=== PATIENT | male | born 2000 | race African-American/Black ===

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

== ENCOUNTER 2025-01-16 11:14 | Emergency (ER) | payer OTHER, SELFPAY ==
[2025-01-16 11:22] VITALS: BP 121/72; PULSE 62; RESP 20; TEMP 36.9; O2SAT 100
--- NOTE | 2025-01-16 12:01 | ED.GENADULT ---
HPI - General Adult General Chief complaint: Unspecified Stated complaint: Body Pain Time Seen by Provider: 01/16/25 12:01 Source: patient Mode of arrival: ambulatory Limitations: no limitations History of Present Illness HPI narrative: 24-year-old male presents with complaint of body aches, fatigue, chills and headaches for the past 3-4 days. Symptoms improving. Attempted to go back into work today And was told that he needs a work note. All systems reviewed and negative except as noted above. Related Data Home Medications ?Medication ?Instructions ?Recorded ?Confirmed ?Last Taken ?Type No Home Medications 01/16/25 01/16/25 Unknown History Allergies Allergy/AdvReac Type Severity Reaction Status Date / Time No Known Allergies Allergy Verified 01/16/25 11:37 Review of Systems Review of Systems: CONSTITUTIONAL: Denies fever, chills, or sweats. EYES: Denies visual changes, redness, or discharge. ENT: Denies rhinorrhea, congestion, sore throat, or otalgia. CARDIOVASCULAR: Denies chest pain, palpitations, or edema. RESPIRATORY: Denies cough or dyspnea. GASTROINTESTINAL: Denies abdominal pain, nausea, vomiting, or diarrhea. GENITOURINARY: Denies dysuria or hematuria. SKIN: Denies rash or itching. MUSCULOSKELETAL: Denies back pain, joint pain, or myalgia. NEUROLOGIC: Denies headache, numbness, or weakness. PSYCHIATRIC: Denies anxiety or depression. All other systems reviewed are negative, except as documented in HPI. PMFSH Comments At time of signature, agree with nursing past medical, surgical, social and family history. There is no relevant family history pertinent to the presenting complaint. Exam Narrative: GENERAL: This is a well-nourished, well-developed patient, in no apparent distress. HEAD: normocephalic, atraumatic. EYES: PERRL. Sclera clear/white. Vision is grossly intact. EARS: External ears normal, auditory canals clear and without drainage, TMs normal without perforation. Hearing grossly intact. NOSE: External nose normal with no obvious nasal discharge, nares without redness, no rhinorrhea. THROAT: Mucous membranes moist, posterior pharynx clear. NECK: Neck supple, non-tender without lymphadenopathy, masses or thyromegaly. CARDIOVASCULAR: Regular rate and rhythm without murmurs, gallops, or rubs. RESPIRATORY: Clear to auscultation. Breath sounds equal bilaterally. No wheezes, rales, or rhonchi. SKIN: warm, Dry, intact with no suspicious lesions or rash, good texture and turgor. NEURO: awake, alert, and oriented to person, place and time. Course Course Level of Care: [facility] Visit Vital Signs Vital signs: Vital Signs Temperature 36.9 C 01/16/25 11:22 Pulse Rate 62 01/16/25 11:22 Respiratory Rate 20 01/16/25 11:22 Blood Pressure 121/72 01/16/25 11:22 Pulse Oximetry 100 01/16/25 11:22 Oxygen Delivery Room Air 01/16/25 11:22 Temperature 36.9 C 01/16/25 11:22 Pulse Rate 62 01/16/25 11:22 Respiratory Rate 20 01/16/25 11:22 Blood Pressure 121/72 01/16/25 11:22 Pulse Oximetry 100 01/16/25 11:22 Oxygen Delivery Room Air 01/16/25 11:22 Review Medical Decision Making MDM Narrative Medical decision making narrative: patient is well-appearing, nontoxic. No longer having any symptoms. Patient given work note for days excuse. Vital Signs Vital Signs: Vital Signs Temperature 36.9 C 01/16/25 11:22 Pulse Rate 62 01/16/25 11:22 Respiratory Rate 20 01/16/25 11:22 Blood Pressure 121/72 01/16/25 11:22 Pulse Oximetry 100 01/16/25 11:22 Oxygen Delivery Room Air 01/16/25 11:22 Temperature 36.9 C 01/16/25 11:22 Pulse Rate 62 01/16/25 11:22 Respiratory Rate 20 01/16/25 11:22 Blood Pressure 121/72 01/16/25 11:22 Pulse Oximetry 100 01/16/25 11:22 Oxygen Delivery Room Air 01/16/25 11:22 Discharge Plan Discharge Clinical Impression: Encounter to obtain excuse from work, Acute viral syndrome Patient Disposition: Home Condition: Stable Instructions: Viral Syndrome (ED) Patient Language: Monegasque Prescriptions: No Action No Home Medications Follow-up/Referrals: PHYSICIAN,CHARGING PLUG PLACER [Primary Care Provider] - Stand Alone Forms: Work/School Release IP Time of Disposition: 12:05
== END 2025-01-16 12:07 | disposition home or self-care (01) ==
PROVIDERS: Emergency Provider Nurse Practitioner Family
DX: Z02.79 Encounter for issue of other medical certificate (principal); B34.9 Viral infection, unspecified
CPT/HCPCS: 99211; G0463

== ENCOUNTER 2025-01-31 12:22 | Emergency (ER) | payer OTHER, SELFPAY ==
[2025-01-31 12:33] VITALS: BP 107/80; PULSE 85; RESP 16; TEMP 37; O2SAT 98
--- NOTE | 2025-01-31 13:09 | ECG_ITS ---
Test Date: 2025-01-31 13:14:15 Measurements Intervals [place] Rate: 54 P: 33 [place]: 134 QRS: 88 QRSD: 114 T: 68 QT: 397 QTc: 378 Interpretive Statements SINUS BRADYCARDIA INCOMPLETE RIGHT BUNDLE BRANCH BLOCK BORDERLINE ECG No previous ECG available for comparison Electronically Signed On 01-31-2025 13:40:55 CDT by Ata Jackson D.O.
--- NOTE | 2025-01-31 17:40 | ED.GENADULT ---
HPI - General Adult General Chief complaint: Unspecified Stated complaint: Feeling of Passing Out/Possible Heat Exhaustion Time Seen by Provider: 01/31/25 13:15 Source: patient and RN notes reviewed Mode of arrival: ambulatory Limitations: no limitations History of Present Illness HPI narrative: 24-year-old male presents [facility] complaining of possible heat exhaustion. 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 Patient states he became fatigued, lightheaded headache, and profusely sweating. Patient left work early due to the heat. Patient went home and drink plenty of fluids and said the lightheadedness resolved, as headache has improved and no longer feels the symptoms he fell or other today. Patient denies any nausea, vomiting, abdominal pain, muscle cramps, rapid heart rate, confusion, chest pain, shortness of breath, loss of consciousness, postural dizziness,, or any other symptoms. Patient is requesting a work note for leaving work early today. Related Data Home Medications ?Medication ?Instructions ?Recorded ?Confirmed ?Last Taken ?Type No Home Medications 01/16/25 01/31/25 Unknown History Allergies Allergy/AdvReac Type Severity Reaction Status Date / Time No Known Allergies Allergy Verified 01/31/25 12:35 Review of Systems Review of Systems: CONSTITUTIONAL: Denies fever, chills, or sweats. EYES: Denies visual changes, redness, or discharge. ENT: Denies rhinorrhea, congestion, sore throat, or otalgia. CARDIOVASCULAR: Denies chest pain, palpitations, or edema. RESPIRATORY: Denies cough or dyspnea. GASTROINTESTINAL: Denies abdominal pain, nausea, vomiting, or diarrhea. GENITOURINARY: Denies dysuria or hematuria. SKIN: Denies rash or itching. MUSCULOSKELETAL: Denies back pain, joint pain, or myalgia. NEUROLOGIC: Denies numbness, or weakness. Positive for headache. PSYCHIATRIC: Denies anxiety or depression. All other systems reviewed are negative, except as documented in HPI. PMFSH Comments At the time of my signature, I reviewed and agree with the nursing past medical, surgical, social, and family history. There is no relevant family history pertinent to the patient complaint. Exam Narrative: GENERAL: This is a well-nourished, well-developed adult, in no apparent distress. They are non ill-appearing, nontoxic appearing. Afebrile. HEAD: normocephalic, atraumatic. EYES: Sclera clear/white. Conjunctiva normal. Vision is grossly intact. Extraocular movements intact EARS: External ears normal,Hearing grossly intact. NOSE: External nose normal THROAT: Mucous membranes moist, NECK: Neck supple, CARDIOVASCULAR: Regular rate and rhythm without murmurs, gallops, or rubs. RESPIRATORY: Clear to auscultation. Breath sounds equal bilaterally. No wheezes, rales, or rhonchi. SKIN: warm, Dry, intact with no suspicious lesions or rash, good texture and turgor. NEURO: awake, alert, and oriented to person, place and time. There were no obvious focal neurologic abnormalities. EXTREMITIES: No joint tenderness, effusion, or edema noted. Course Course Emergency Course: Portions of this record may have been created with voice recognition software Level of Care: [facility] Visit Vital Signs Vital signs: Vital Signs Temperature 98.6 F 01/31/25 12:33 Pulse Rate 85 01/31/25 12:33 Respiratory Rate 16 01/31/25 12:33 Blood Pressure 107/80 01/31/25 12:33 Pulse Oximetry 98 01/31/25 12:33 Oxygen Delivery Room Air 01/31/25 12:33 Temperature 98.6 F 01/31/25 12:33 Pulse Rate 85 01/31/25 12:33 Respiratory Rate 16 01/31/25 12:33 Blood Pressure 107/80 01/31/25 12:33 Pulse Oximetry 98 01/31/25 12:33 Oxygen Delivery Room Air 01/31/25 12:33 Reviewed Medical Decision Making MDM Narrative Medical decision making narrative: EKG sinus bradycardia without any ischemic findings or arrhythmias. Patient likely had heat exhaustion this morning appears to have resolved after going home, staying out of the heat, and drinking fluids. Patient appears well hydrated. Recommend patient continue to remain hydrated, remain out of the heat, and supplement with electrolyte solutions. Patient hemodynamically stable, mucous membranes are moist, in no apparent distress, patient's temperature is normal. Discussed physical exam findings. Advised supportive measures and signs/symptoms to go to the ER. Pt is appropriate for outpt treatment and f/u. Differential Diagnosis Differential Diagnosis: Heat exhaustion, heat stroke, syncope, arrhythmia, dehydration Vital Signs Vital Signs: Vital Signs Temperature 98.6 F 01/31/25 12:33 Pulse Rate 85 01/31/25 12:33 Respiratory Rate 16 01/31/25 12:33 Blood Pressure 107/80 01/31/25 12:33 Pulse Oximetry 98 01/31/25 12:33 Oxygen Delivery Room Air 01/31/25 12:33 Temperature 98.6 F 01/31/25 12:33 Pulse Rate 85 01/31/25 12:33 Respiratory Rate 16 01/31/25 12:33 Blood Pressure 107/80 01/31/25 12:33 Pulse Oximetry 98 01/31/25 12:33 Oxygen Delivery Room Air 01/31/25 12:33 ECG Data EKG #1: ECG completion date: 01/31/25 ECG completion time: 13:14 Prior ECG tracings: not available for review EKG Interpretation: bradycardia, sinus rhythm, no ectopy, no ST changes, normal QRS and normal QT Critical Care Time Critical Care Time Critical Care Time: No Discharge Plan Discharge Clinical Impression: Heat exhaustion Patient Disposition: Home Condition: Stable Instructions: Heat Exhaustion (ED) Additional Instructions: Your EKG is unremarkable today. Is likely have heat exhaustion from working outside today. Please continue to drink plenty of fluids today and supplement with electrolyte solutions such as Pedialyte or other sports drinks. Please rest today and stay out of the heat. When working outside please take frequent breaks in cool off an air condition buildings or units,, plenty of fluids along with sports drinks or electrolyte drinks, work in the shade when possible. Follow-up with PCP in 3-5 days. If your symptoms return, you stop sweating, you develop confusion, severe muscle cramps, nausea, vomiting, abdominal pain, lightheadedness, loss of consciousness, or any other concerns please go to the ER immediately. Patient Language: Maltese Prescriptions: No Action No Home Medications Follow-up/Referrals: PHYSICIAN,EMBOSSED OR IMPRESSED LETTERING PAINTER [Primary Care Provider] - Stand Alone Forms: Work/School Release IP Time of Disposition: 13:30
== END 2025-01-31 13:40 | disposition home or self-care (01) ==
DX: T67.5XXA Heat exhaustion, unspecified, initial encounter (principal); X30.XXXA Exposure to excessive natural heat, initial encounter
CPT/HCPCS: 93005; 99213; G0463